=== PATIENT | female | born 1955 | race Caucasian/White ===

== ENCOUNTER 2021-04-01 05:31 | Outpatient (RCR) | payer OTHER ==
[~2021-04-01] VITALS: Ht 177.8 cm; Wt 85.3 kg
[~2021-04-01 05:31] MED LIST: CALC-72 PO; FAMO-119 PO; FLUT9.9S NS; MELA3TAB34 PO; PREDNISONE PO
[2021-04-02] MEDS ORDERED: PANT40TA2 PO (10:22)
== END 2021-04-01 08:34 | disposition home or self-care (01) ==
LOC: PREOP 05:31
PROVIDERS: ATTEND Surgery
DX: Z01.812 Encounter for preprocedural laboratory examination (principal); K21.9 Gastro-esophageal reflux disease without esophagitis; Z20.822 Contact with and (suspected) exposure to COVID-19
CPT/HCPCS: 87635

== ENCOUNTER 2021-04-02 08:55 | Day surgery (SDC) | payer OTHER ==
[2021-04-02] VITALS (11 sets, daily range): BP systolic 110–144; BP diastolic 67–85
[~2021-04-02] VITALS: Ht 177.8 cm; Wt 85.3 kg
[2021-04-02] MEDS ORDERED: NS IV 500 ML 500 ML IV PRN (09:15)
[2021-04-02] MEDS ORDERED: fentaNYL INJ 100 MCG/2 ML AMP IVP ONE (09:15)
[2021-04-02] MEDS ORDERED: HURRICAINE EXT TUBE (BENZOCAINE) XX PRN (09:15)
[2021-04-02] MEDS ORDERED: LIDOCAINE JELLY 2% 6 ML SYRINGE MM PRN (09:15)
[2021-04-02] MEDS ORDERED: MIDAZOLAM 5 MG/5 ML (VERSED) VIAL IV ONE (09:15)
--- NOTE | 2021-04-02 10:20 | Conscious Sedation/ASA ---
Conscious Sedation Pre-Proced Time 09:30 ASA Score 2 �For ASA 3 and 4: Consider anesthesia and medical clearance.� Also, for patients with a history of failed moderate sedation consider anesthesia.� Airway Lungs Heart ASA score ASA 1: a normal healthy patient ASA 2: a patient with a mild systemic disease (mid diabetes, controlled hypertension, obesity ASA 3: a patient with a severe systemic disease that limits activity (angina, COPD, prior Myocardial infarction) ASA 4: a patient with an incapacitating disease that is a constant threat to life (CHF, renal failure) ASA 5: a moribund patient not expected to survive 24 hrs. (ruptured aneurysm) ASA 6: a declared brain- patient whose organs are being harvested. For emergent operations, add the letter E after the classification Mallampati Classification Grade 2 Sedation Plan Analgesia, Amnesia, Plan communicated to team members, Discussed options with patient/fam, Discussed risks with patient/fam The patient is an appropriate candidate to undergo the planned procedure, sedation, and anesthesia. The patient immediately re-assessed prior to indication. JENNIFER SEALS MD Apr 02, 2021 10:20
--- NOTE | 2021-04-02 10:21 | Progress Note-Pre Operative ---
Pre-Operative Progress Note H&P Reviewed The H&P was reviewed, patient examined and no changes noted. Date Seen by Provider: Apr 02, 2021 Time Seen by Provider: : Date H&P Reviewed: Apr 02, 2021 Time H&P Reviewed: :30 Pre-Operative Diagnosis: upper abd pain JENNIFER SEALS MD Apr 02, 2021 10:21
[2021-04-02] MEDS ORDERED: PANT40TA2 PO (10:22)
--- NOTE | 2021-04-02 10:22 | Discharge Inst-Surgical ---
D/C Lap Instructions-KIDO New, Converted, or Re-Newed RX: RX on Chart Follow Up Activity as tolerated High Fiber Diet 25g or more per day Avoid Alcohol, Caffeine, Spicy [place] and Acid foods. Drink 64 fluid oz or more of fluids per day. Symptoms to Report: Fever over 101 degree F, Nausea/Vomiting If any problems/questions: Contact your physician or go to Emergency Room JENNIFER SEALS MD Apr 02, 2021 10:22
[2021-04-02] MEDS ORDERED: ONDANSETRON 4 MG/2 ML (SDV) Z0FRAN IVP PRN (10:30)
[2021-04-02] MEDS ORDERED: ONDANSETRON 4 MG (ZOFRAN) ORAL DISSOLVE TAB PO PRN (10:30)
--- NOTE | 2021-04-02 10:50 | Progress Note-Post Operative ---
Post-Operative Progess Note Surgeon (s)/Baby Doctor (s) Surgeon JENNIFER SEALS MD Baby Doctor: none Pre-Operative Diagnosis upper abd pain Post-Operative Diagnosis reflux eosphagitis(grade 3), small-mo type 3 HH(2.5cm), mild gastritis. Procedure & Operative Findings Date of Procedure 04/02/21 Procedure Performed/Findings laparoscopic cholecystectomy Anesthesia Type cs Estimated Blood Loss Estimated blood loss (mL): minimal Specimens/Packing Specimens Removed ge jxn, antrum JENNIFER SEALS MD Apr 02, 2021 10:50
--- NOTE | 2021-04-02 18:39 | OPERATIVE REPORT ---
DATE OF SERVICE: 04/02/2021 ATTENDING PRIMARY CARE PHYSICIAN: Royal Hyatt DO PREOPERATIVE DIAGNOSIS: Upper abdominal pain, gastroesophageal reflux disease. POSTOPERATIVE DIAGNOSES: Reflux esophagitis, Pickens grade C, small to moderate size hiatal hernia approximately 2.5 cm in size, mild gastritis. PROCEDURE: EGD with biopsy. SURGEON: Jennifer Seals MD. ANESTHESIA: Conscious sedation. ESTIMATED BLOOD LOSS: Minimal. FINDINGS: Reflux esophagitis, Pickens grade C, small to moderate size hiatal hernia approximately 2.5 cm in size, mild gastritis. DISPOSITION: The patient tolerated the procedure well. INDICATIONS: The patient is a 65-year-old female who has had upper abdominal pain for the past few weeks. She states that this can be in the left upper abdominal quadrant; however, can radiate towards the back as well. She states that her symptoms are unusual and she does have epigastric burning sensation as well as heartburn for many years and has a known history of a hiatal hernia. She states that she has since then developed an overall feeling of abdominal distention and not feeling well usually after eating meals. An ultrasound was performed, which did show biliary sludge. DESCRIPTION OF PROCEDURE: The patient was brought to the endoscopy suite, laid in the left lateral decubitus position. After adequate IV pain and sedative medications and conscious sedation anesthesia, the mouthpiece was applied. The endoscope was placed in the mouth, visualized the pharynx and hypopharyngeal region. Vocal cords, epiglottis and vallecula identified and appeared to be normal. The endoscope was then gently intubated esophageal opening and esophagus insufflated. The endoscope was then advanced through the first, second and third portion of esophagus at the level of the GE junction, a reflux esophagitis, Pickens grade C identified. A biopsy was taken with forceps with visualization of good hemostasis. The endoscope was then advanced into the stomach and endoscope retroflexed, visualizing a small to moderate-sized type 3 hiatal hernia approximately 2.5 cm in size. There was a mild gastritis. No formal ulcerations, polyps, or any neoplasms. A biopsy was taken of the antrum to rule out H. pylori with visualization of good hemostasis. The endoscope was then advanced through the pylorus and the first and second portions of the duodenum, which appeared normal with no distal obstructions or any ulcerations. The endoscope was then slowly withdrawn while taking a second look and suctioning of residual air with no additional findings. The patient tolerated the procedure well. We feel that she does have significant reflux esophagitis as well as a hiatal hernia; however, we will treat this medically first with the necessary lifestyle and dietary accommodation including small and more frequent meals, avoiding to eating at night as well as head elevation while lying supine. She also needs to avoid caffeinated beverages, spicy, greasy and acidic foods. We feel that if she has continued symptoms, the next step would be to proceed with a laparoscopic cholecystectomy due to her symptomatology characteristics as well as the biliary sludge identified on ultrasound. If she continues to have reflux type of symptoms or Woodward's esophagus on biopsy, we would then further recommend a potential antireflux procedure. However, we would proceed with an esophageal manometry before to rule out an esophageal dysmotility disorders. Job ID: [id number] DocumentID: [id number] Dictated Date: 04/02/2021 10:45:45 Composition Molder Date: 04/02/2021 18:38:14 Dictated By: JENNIFER SEALS MD MTDD
== END 2021-04-02 11:55 | disposition home or self-care (01) ==
LOC: ENDO 08:55
PROVIDERS: ATTEND Surgery
DX: K21.00 Gastro-esophageal reflux disease with esophagitis, without bleeding (principal); K44.9 Diaphragmatic hernia without obstruction or gangrene; K29.70 Gastritis, unspecified, without bleeding; Z79.899 Other long term (current) drug therapy; Z98.51 Tubal ligation status

== ENCOUNTER → 2022-07-23 | Outpatient (CLI) | payer OTHER ==
[~2022-07-23] MED LIST changes: +PANT40TA2 PO
--- NOTE | 2022-07-23 10:30 | Diagnostic Imaging Report ---
PROCEDURE: MRI right joint lower extremity without contrast. TECHNIQUE: Multiplanar, multisequence non contrast-enhanced MRI of the right lower extremity was accomplished. INDICATION: Lateral ankle pain and redness. Pain near the 5th metatarsal base. EXAMINATION: MRI of the right lower extremity without contrast 07/23/2022. FINDINGS: There is abnormal T2 hyperintensity within the peroneus longus tendon below the level of the malleolus. This is well seen on coronal images 9 through 12. There is a suspected longitudinal split tear with surrounding fluid suggesting tenosynovitis. No complete discontinuity is noted. Peroneus brevis tendon appears intact. The flexor and extensor tendons also intact. The anterior and posterior inferior tibiofibular ligaments intact. Anterior talofibular ligament intact, posterior talofibular ligament intact. Deltoid ligament intact. The plantar fascia unremarkable. Achilles tendon unremarkable. IMPRESSION: 1. Longitudinal split tear of the peroneus longus tendon with surrounding changes of tenosynovitis. Remaining visualized tendons unremarkable. 2. Ligaments intact. Cystic changes noted in the visualized proximal 3rd metatarsal nonspecific but benign in appearance perhaps a subchondral cyst associated with degenerative disease. Dictated by: Dictated on workstation # [id number]
== END ==
LOC: RAD 07:42
PROVIDERS: ATTEND Podiatrist Foot & Ankle Surgery
DX: S96.811A Strain of other specified muscles and tendons at ankle and foot level, right foot, initial encounter (principal); M76.71 Peroneal tendinitis, right leg; X58.XXXA Exposure to other specified factors, initial encounter
CPT/HCPCS: 73721

== ENCOUNTER → 2022-10-12 | Outpatient (CLI) | payer OTHER ==
--- NOTE | 2022-10-12 09:05 | Diagnostic Imaging Report ---
CT SINUS COMPLETE WO DATE: 10/12/2022 8:05 AM INDICATION: SINUSITIS. COMPARISON: None. TECHNIQUE: CT images of the paranasal sinuses were obtained without intravenous contrast. Coronal and sagittal reformatted images were performed at a separate workstation and reviewed. One or more of the following dose reduction techniques were utilized: Automated exposure control (AEC), Adjustment of mA and/or kV according to patient size, Use of iterative reconstruction technique such as ASiR, CT scan done according to ALARA and image gently/image wisely FINDINGS: Partial opacification of the bilateral maxillary sinuses with air-fluid level in the left maxillary sinus. Partial opacification of the posterior ethmoid sinuses. Partial opacification of the sphenoid sinus. Mild thickening of the inferior and middle turbinates. Complete opacification of the left ostiomeatal unit and partial opacification of the right ostiomeatal unit. Mucosal thickening with partial opacification of the frontal sinuses. Rojas bullosa within the bilateral superior turbinates. Mucosal thickening with complete opacification of the left ostiomeatal unit and partial near complete opacification of the right ostiomeatal unit. Rightward nasal septal deviation. The visualized osseous structures are otherwise normal. The visualized orbits and globes are normal. The visualized brain parenchyma is normal in attenuation. IMPRESSION: Mucosal thickening with partial opacification of the bilateral maxillary, posterior ethmoid, and frontal sinuses with associated air-fluid level within the left maxillary sinus. Bilateral pneumatized rojas bullosa is within the bilateral superior turbinates. Mild mucosal thickening within the inferior and middle turbinates. Mucosal thickening with complete opacification of the left ostiomeatal unit and partial near complete opacification of the right ostiomeatal unit. Rightward nasal septal deviation. Dictated by: Dictated on workstation # [id number]
== END ==
LOC: RAD 07:42
PROVIDERS: ATTEND Otolaryngology Otolaryngology/Facial Plastic Surgery
DX: J32.0 Chronic maxillary sinusitis (principal); J32.2 Chronic ethmoidal sinusitis; J32.1 Chronic frontal sinusitis; J34.2 Deviated nasal septum
CPT/HCPCS: 70486

== ENCOUNTER → 2023-03-16 | Outpatient (CLI) | payer OTHER ==
[~2023-03-16] MED LIST changes: +CATHETER FLUSH 10 ML SYR IVP PRN; +NITROGLYCERIN 50 MG/10 ML VIAL IV ONE
--- NOTE | 2023-03-16 10:00 | Diagnostic Imaging Report ---
INDICATION: Right upper quadrant pain. FINDINGS: The patient was administered 5.32 mCi of Tc 99m Choletec and sequential imaging was performed over the right upper abdomen. There is progressive, homogeneous accumulation of radiotracer within the liver parenchyma. There is filling of the bile ducts and subsequent filling of the gallbladder. There is progressive clearance of activity from the liver parenchyma and accumulation of radiotracer within loops of small bowel. The patient was then administered a fatty meal, utilizing 8 ounces of Ensure. The gallbladder ejection fraction was calculated to be approximately 45.3%. (Normal values post fatty meal stimulation are 33% or greater.) No discomfort during the examination. IMPRESSION: 1. Hepatobiliary scan demonstrates a patent biliary tree. 2. Normal gallbladder ejection fraction of 45.3%. Dictated by: Dictated on workstation # [id number]
== END ==
LOC: CARD 06:38
PROVIDERS: ATTEND Surgery
DX: R10.11 Right upper quadrant pain (principal)
CPT/HCPCS: 78227; A9537

== ENCOUNTER → 2023-03-17 | Outpatient (CLI) | payer OTHER ==
[~2023-03-17] MED LIST changes: -CATHETER FLUSH 10 ML SYR IVP PRN; -NITROGLYCERIN 50 MG/10 ML VIAL IV ONE
--- NOTE | 2023-03-17 16:12 | Diagnostic Imaging Report ---
PROCEDURE: US Gallbladder. TECHNIQUE: Multiple real-time grayscale images were obtained over the right upper quadrant in various projections. INDICATION: Right upper quadrant abdominal pain. COMPARISON: None. FINDINGS: The liver is normal in size, shape and echo texture. There is no focal lesion. Portal vein shows hepatopetal flow. No intrahepatic or extrahepatic biliary dilatation is present. The common bile duct is not dilated and measures 2 mm.. Gallbladder is visualized. Hyperechoic spherical structure is identified and measures 5 x 3 mm. There is no posterior acoustic shadowing. This could represent non-shadowing stone versus gallbladder. There is however no gallbladder wall thickening nor pericholecystic free fluid. The visualized portions of the head and proximal body of the pancreas are within normal limits. The distal body and tail of the pancreas are not visualized due to overlying bowel gas. There is no ascites. The right kidney measures approximately 10.7 cm in length and has a normal appearance. The visualized portions of the IVC and aorta are normal. IMPRESSION: Probable gallbladder polyp. Non-shadowing gallstone is a consideration, but felt to be less likely. Given its small size, follow-up in one year could be performed to ensure stability. Dictated by: Dictated on workstation # [id number]
== END ==
LOC: RAD 14:30
PROVIDERS: ATTEND Surgery
DX: R10.11 Right upper quadrant pain (principal)
CPT/HCPCS: 76705